=== PATIENT | female | born 1980 | race Caucasian/White ===

== ENCOUNTER 2017-03-05 14:27 | Emergency (ER) | payer OTHER ==
[~2017-03-05] VITALS: Ht 162.6 cm; Wt 50.8 kg
[2017-03-05] MEDS ORDERED: LEVOTHYROXINE 100 MCG TABLET PO (15:04)
[2017-03-05] MEDS ORDERED: FOLIC ACID 1 MG TABLET PO (15:04)
--- NOTE | 2017-03-05 16:33 | NUR ---
Patient is not found in the room, MD notified.
== END 2017-03-05 16:36 | disposition left against medical advice (07) ==
LOC: ER 14:29
DX: R11.10 Vomiting, unspecified (principal); Z53.21 Procedure and treatment not carried out due to patient leaving prior to being seen by health care provider
CPT/HCPCS: A4663